=== PATIENT | male | born 1965 | race Caucasian/White ===

== ENCOUNTER 2019-11-05 21:03 | Emergency (ER) | payer BC ==
[~2019-11-05] VITALS: Ht 180.3 cm; Wt 90.7 kg
[2019-11-05 21:10] VITALS: Ht 180.3 cm; Wt 90.7 kg
[2019-11-05 22:48] LABS: BASOPHIL % 0.3 % (0-2); PLATELET COUNT 257 x10^3mcL (130-400)
[2019-11-05 22:49] LABS: RED CELL DISTRIBUTION WIDTH 15.5 % (11.5-14.5)
[2019-11-05 23:16] LABS: ALBUMIN 3.9 g/dL (3.4-5.0); CARBON DIOXIDE 28.5 mmol/L (21-32); CHLORIDE SERUM 102 mmol/L (98-107); CREATININE SERUM 0.8 mg/dL (0.7-1.3); GFR1 > 60 mL/min; GLUCOSE SERUM 99 mg/dL (74-106); POTASSIUM SERUM 4.4 mmol/L (3.5-5.1); SODIUM SERUM 139 mmol/L (136-145)
[2019-11-05 23:17] LABS: ALKALINE PHOSPHATASE 100 U/L (46-116); ALT/SGPT 85 U/L (16-63); AST/SGOT 37 U/L (15-37)
[2019-11-06 02:00] VITALS: BP 124/80
== END 2019-11-06 02:00 | disposition home or self-care (01) ==
LOC: ED 21:03
PROVIDERS: Emergency Medicine
DX: R53.1 Weakness (principal); M79.10 Myalgia, unspecified site; R53.83 Other fatigue; R42 Dizziness and giddiness; R11.0 Nausea
CPT/HCPCS: 36415; 87804; J1885